=== PATIENT | female | born 1965 | race Caucasian/White ===

== ENCOUNTER 2025-01-13 11:28 | Inpatient (IN) | payer OTHER, SELFPAY ==
[2025-01-13] VITALS (60 sets, daily range): BP systolic 97–124; BP diastolic 67–87; PULSE 75–127; TEMP 36.3–37; O2SAT 90–99; BMI 46.4; BMI 53.9
--- NOTE | 2025-01-13 11:43 | ECG_ITS ---
[facility] Test Date: 2025-01-13 Pat Name: IRASEMA STRICKLAND Department: Room: - Gender: Female Local Delivery Driver: : 1965 Requested By: [id number] Order Number: [id number] Reading MD: JOHNATHON GREENBERG Measurements Intervals [place] Rate: 108 P: -49264 GA: -53331 QRS: 98 QRSD: 100 T: -68 QT: 336 QTc: 400 Interpretive Statements 1420 Undetermined rhythm, possibly atrial fibrillation [address] depression 4664 Twave abnormality, possible inferior ischemia 7102 Moderate right axis deviation 8102 Low QRS voltage in chest leads 9150 abnormal ECG Electronically Signed On 01-13-2025 20:27:28 EST by JOHNATHON GREENBERG
--- NOTE | 2025-01-13 11:58 | US_ITS ---
The [address] [address] Patient Name: IRASEMA STRICKLAND MRN: [id number] date: 1965 Sex: F Assigned Patient Location: ER Current Patient Location: ER Accession/Order Number: [id number] Exam Date: 01/13/2025 16:24 Report Date: 01/13/2025 16:28 At the request of: PHANI LEVIN MD Procedure: US venous doppler LE LT VENOUS DUPLEX ULTRASOUND - right lower extremity HISTORY / INDICATION: Right calf erythema and pain COMPARISON: NONE TECHNIQUE: Duplex and color Doppler ultrasound evaluation of the right lower extremity was performed. FINDINGS: Evaluation is slightly limited by body habitus. The common femoral, superficial femoral and popliteal veins show normal flow and as visualized, normal compressibility. No intraluminal filling defects are identified. The visualized calf veins and greater saphenous vein are also compressible. The subcutaneous soft tissues are edematous. US/US venous doppler LE LT IMPRESSION: NO DEFINITE ACUTE DEEP VEIN THROMBOSIS OF THE RIGHT LOWER EXTREMITY. SUBCUTANEOUS EDEMA. Impression dictated by: Kathy Saul M.D.01/13/2025 4:28 PM Dictation Location: [employer] Electronically authenticated by: [id number] Y Date: 01/13/2025 16:28
[2025-01-13 12:16] LABS: Basophils Absolute Auto 0.1 10^3/uL (0.0-0.1); Basophils Percent Auto 1.1 % (0.2-2.0); Eosinophils Absolute Auto 0.1 10^3/uL (0.0-0.7); Eosinophils Percent Auto 1.1 % (0.9-7.0); Immature Granulocytes Abs Auto 0.02 10^3/uL (0.00-0.03); Immature Granulocytes Pct Auto 0.3 % (0.0-0.5); Lymphocytes Absolute Auto 1.1 10^3/uL (1.2-3.8); Lymphocytes Percent Auto 16.9 % (20.5-60.0); Mean Corpuscular HGB Conc 31.4 g/dL (29.9-35.2); Mean Corpuscular Volume 92.3 fL (81.0-99.0); Mean Platelet Volume 10.2 fL (9.5-13.5); Monocytes Absolute Auto 0.6 10^3/uL (0.3-0.8); Monocytes Percent Auto 8.8 % (1.7-12.0); Neutrophils Absolute Auto 4.7 10^3/uL (1.4-6.5); Neutrophils Percent Auto 71.8 % (43.0-75.0); Platelet Count 178 10^3/uL (150-450); Red Blood Count 3.79 10^6/uL (4.20-5.40); Red Cell Distribution Width 16.6 % (11.0-15.0); White Blood Count 6.6 10^3/uL (4.0-11.0)
[2025-01-13 12:33] LABS: Magnesium 1.6 mg/dL (1.8-2.4); Troponin I High Sensitivity 9.9 pg/mL (4.0-51.3)
[2025-01-13 12:34] LABS: Alanine Aminotransferase 11 U/L (14-59); Albumin Globulin Ratio 0.7; Albumin Level 3.1 g/dL (3.4-5.0); Alkaline Phosphatase 108 U/L (46-116); Anion Gap 15.7; Aspartate Amino Transferase 16 U/L (15-37); BUN Creatinine Ratio 12.5; Bilirubin Total 2.6 mg/dL (0.2-1.0); Calcium 8.9 mg/dL (8.5-10.1); Carbon Dioxide 23.1 mmol/L (21.0-32.0); Chloride 104 mmol/L (98-107); Estimated GFR (African America >60 (>=60 mL/min/1.73m^2); Estimated GFR (Non-African Ame 50 (>=60 mL/min/1.73m^2); Globulin 4.3 g/dL; Glucose 87 mg/dL (74-106); Potassium 3.8 mmol/L (3.5-5.1); Sodium 139 mmol/L (136-145); Total Protein 7.4 g/dL (6.4-8.2)
[2025-01-13 12:35] LABS: INR 1.68; Prothrombin Time 16.9 sec (9.0-11.6)
[2025-01-13 12:36] LABS: Lactate/Lactic Acid 2.2 mmol/L (0.4-2.0)
[2025-01-13 12:38] LABS: D Dimer 3.14 mg/L FEU (<=0.59)
--- NOTE | 2025-01-13 14:00 | CT_ITS ---
The [address] [address] Patient Name: IRASEMA STRICKLAND MRN: [id number] date: 1965 Sex: F Assigned Patient Location: ER Current Patient Location: Accession/Order Number: [id number] Exam Date: 01/13/2025 16:09 Report Date: 01/13/2025 16:23 At the request of: PHANI LEVIN MD Procedure: CT angio chest CT PULMONARY ANGIOGRAM WITH CONTRAST CLINICAL HISTORY: Shortness of breath, left leg pain and elevated d-dimer. Prior history of pulmonary embolism. COMPARISON: 11/08/2020 TECHNIQUE: Spiral images were obtained through the chest following intravenous administration of 100 mL of Omnipaque 3505. Images were reviewed using both narrow and wide window settings. Sagittal, coronal and 3 D volume-rendered reconstructions were performed and reviewed. This CT exam was performed using one or more following dose reduction techniques: Automated exposure control, adjustment of the mA and/or kV according to patient size, or use of iterative reconstruction technique. FINDINGS: The heart remains prominent, particularly the right ventricle. Mild reflux into the IVC and hepatic veins is again seen. There is no pericardial effusion. No aortic aneurysm or dissection is identified. The main pulmonary artery remains mildly prominent. There is adequate opacification of the pulmonary arteries. No obvious emboli are identified however assessment of some of the peripheral arterial branches is slightly limited by the presence of respiratory motion. No pathologic lymphadenopathy is seen. The bony structures are intact. Scarring is present at the left lung apex. Additional areas of scarring and possible atelectasis are present bilaterally. Somewhat nodular areas of more focal consolidation are seen at the right lower lobe posteriorly. There is also minor patchy groundglass density on the right which may be new. There is no pneumothorax or pleural effusion. Limited cuts through the upper abdomen show some ascites. CT/CT angio chest IMPRESSION: CARDIOMEGALY WITH RIGHT HEART FAILURE. CONTINUED POTENTIAL PULMONARY ARTERY HYPERTENSION. NO OBVIOUS ACUTE PULMONARY EMBOLISM. ATELECTASIS AND/OR SCARRING. NODULAR CONSOLIDATION AND PATCHY GROUNDGLASS DENSITY INVOLVING THE RIGHT LUNG. Impression dictated by: Kathy Saul M.D.01/13/2025 4:23 PM Dictation Location: [place] [address] Electronically authenticated by: [id number] Y Date: 01/13/2025 16:23
[2025-01-13] MEDS: 0.9 % SODIUM CHLORIDE 1,000 ML 500 ML IV (14:37)
--- NOTE | 2025-01-13 17:37 | ED_ITS ---
HPI HPI - General Adult General Chief complaint: Shortness of Breath/Dyspnea Stated complaint: SOB Time Seen by Provider: 01/13/25 11:43 Source: patient Mode of arrival: ambulance Limitations: no limitations History of Present Illness HPI narrative: The patient is a 59-year-old female is coming to the ER after she was evaluated outpatient by her primary care, patient was found to be short of breath on exertion and she have bilateral leg edema mostly in the left than the right, the patient have a history of DVT as well as history of multiple PEs before and she is taking anticoagulation Patient mentioned that she has been feeling since since October when she was diagnosed with COVID-19 and apparently has been short of breath since then, her main concern that she has been having bilateral leg edema up to her knee level at least that is preventing her from ambulating properly, her legs are very swollen Related Data Home Medications ?Medication ?Instructions ?Recorded ?Confirmed albuterol sulfate 90 mcg/actuation 3 inh inhalation Q4H PRN breathing 01/13/25 01/13/25 breath activated powder inhaler apixaban 5 mg tablet (Eliquis) 5 mg PO BID 01/13/25 01/13/25 ergocalciferol (vitamin D2) 1,250 01/13/25 mcg (50,000 unit) capsule furosemide 40 mg tablet (Lasix) 40 mg PO DAILY 01/13/25 01/13/25 losartan 50 mg tablet (Cozaar) 50 mg PO DAILY 01/13/25 01/13/25 montelukast 10 mg tablet 10 mg PO DAILY 01/13/25 01/13/25 (Singulair) potassium chloride 20 mEq oral 20 meq PO DAILY 01/13/25 01/13/25 packet (Klor-Con) Allergies Allergy/AdvReac Type Severity Reaction Status Date / Time morphine Allergy Mild Rash Verified 01/13/25 11:39 Opioid HPI Opioid Management Most Recent Opioid Data: No Data to Display Review of Systems ROS Status of ROS 10 or more systems reviewed and unremark able except as noted in history and below PFSH PFSH Social History Little interest or pleasure in doing things: not at all Feeling down, depressed, or hopeless: not at all Exam Narrative Exam Narrative: Nurses notes and vital signs reviewed and patient is not hypoxic. Lower extremity exam: The patient have a pitting bilateral edema with chronic skin changes and hardening of the skin, there is erythema noted behind the left calf area there is no tenderness on palpation but the patient feet are very edematous with 1+ to 2+ edema in the foot, no vascular injury detected General: Well-appearing and in no apparent distress. Skin: Warm, dry, no pallor noted. No rash. Head: Normocephalic, atraumatic. Neck: Supple, non-tender. Eye: Pupils are equal, round and EOMI. No scleral icterus. Ears, Nose, Mouth, and Throat: TM are clear, no nasal mucosal hypertrophy. Oral mucosa is moist, no posterior oropharynx erythema, uvula is mid-line Cardiovascular: Regular Rate and Rhythm without murmur, gallop or rub. Respiratory: Distant breathing sound bilaterally no wheezing Back: No midline thoracic or lumbar vertebral tenderness. No CVA tenderness GI: Abdomen is soft, non-distended. Normal bowel sounds. No masses appreciated. No tenderness to palpation. No rebound, guarding, or rigidity noted. Neurological: A&O x4. No cranial nerve dysfunction observed. No truncal ataxia. Moves all extremities. Sensation intact. Psychiatric: Cooperative and interactive. Normal mood and affect. Constitutional Vital Signs, click to edit/add: Last Vital Signs Temp 98.1 F 01/13/25 11:35 Pulse 105 H 01/13/25 18:00 Resp 17 01/13/25 18:00 BP 110/73 01/13/25 17:59 Pulse Ox 99 01/13/25 18:00 O2 Del Method Room Air 01/13/25 11:35 Course Vital Signs Vital signs: Vital Signs Temperature 98.1 F 01/13/25 11:35 Pulse Rate 109 H 01/13/25 11:35 Respiratory Rate 24 H 01/13/25 11:35 Blood Pressure 123/87 01/13/25 11:35 Pulse Oximetry 96 01/13/25 11:35 Oxygen Delivery Method Room Air 01/13/25 11:35 Temperature 98.1 F 01/13/25 11:35 Pulse Rate 105 H 01/13/25 18:00 Respiratory Rate 17 01/13/25 18:00 Blood Pressure 110/73 01/13/25 17:59 Pulse Oximetry 99 01/13/25 18:00 Oxygen Delivery Method Room Air 01/13/25 11:35 Medical Decision Making MDM Narrative Medical decision making narrative: The patient duplex of the left lower extremity showed no DVT CBC and chemistry showed no acute significant pathology with the BNP of 700 D-dimer was elevated and the patient had a CT angio of the chest showing no PE but the patient have chronic pulmonary hypertension and right-sided heart failure Patient EKG upon arrival showing [address] heart rate with no ST elevation or depression The patient CT of the chest showed no PE but she definitely have bilateral edema that is causing her to have a difficult ambulation The patient case was discussed with Dr. Zhang and she will be admitted under for CHF management and diuresis Lab Data Labs: Lab Results 01/13/25 01/13/25 01/13/25 Range/Units 12:01 12:41 14:58 WBC 6.6 (4.0-11.0) 10^3/uL RBC 3.79 L (4.20-5.40) 10^6/uL Hgb 11.0 L (12.0-16.0) g/dL Hct 35.0 L (36.0-48.0) % MCV 92.3 (81.0-99.0) fL MCH 29.0 (26.7-34.0) pg MCHC 31.4 (29.9-35.2) g/dL RDW 16.6 H (11.0-15.0) % Plt Count 178 (150-450) 10^3/uL MPV 10.2 (9.5-13.5) fL Neut % (Auto) 71.8 (43.0-75.0) % Lymph % (Auto) 16.9 L (20.5-60.0) % [place] % (Auto) 8.8 (1.7-12.0) % Eos % (Auto) 1.1 (0.9-7.0) % Baso % (Auto) 1.1 (0.2-2.0) % Neut # (Auto) 4.7 (1.4-6.5) 10^3/uL Lymph # (Auto) 1.1 L (1.2-3.8) 10^3/uL [place] # (Auto) 0.6 (0.3-0.8) 10^3/uL Eos # (Auto) 0.1 (0.0-0.7) 10^3/uL Baso # (Auto) 0.1 (0.0-0.1) 10^3/uL Abs Immat Gran (auto) 0.02 (0.00-0.03) 10^3/uL Imm/Tot Granulo (auto) 0.3 (0.0-0.5) % PT 16.9 H (9.0-11.6) sec INR 1.68 D-Dimer 3.14 H* (<=0.59) mg/L FEU Sodium 139 (136-145) mmol/L Potassium 3.8 (3.5-5.1) mmol/L Chloride 104 (98-107) mmol/L Carbon Dioxide 23.1 (21.0-32.0) mmol/L Anion Gap 15.7 BUN 14.0 (7.0-18.0) mg/dL Creatinine 1.12 H (0.55-1.02) mg/dL Est GFR ( Amer) >60 (>=60 mL/min/1.73m^2) Est GFR (Non-Af Amer) 50 L (>=60 mL/min/1.73m^2) BUN/Creatinine Ratio 12.5 Glucose 87 (74-106) mg/dL Lactate 2.2 H* 2.0 (0.4-2.0) mmol/L Calcium 8.9 (8.5-10.1) mg/dL Magnesium 1.6 L (1.8-2.4) mg/dL Total Bilirubin 2.6 H (0.2-1.0) mg/dL AST 16 (15-37) U/L ALT 11 L (14-59) U/L Alkaline Phosphatase 108 (46-116) U/L Troponin I High Sens 9.9 (4.0-51.3) pg/mL NT-Pro-B Natriuret Pep 719.0 (<=900.0) pg/mL Total Protein 7.4 (6.4-8.2) g/dL Albumin 3.1 L (3.4-5.0) g/dL Globulin 4.3 g/dL Albumin/Globulin Ratio 0.7 Discharge Plan Discharge Chief Complaint: Shortness of Breath/Dyspnea Clinical Impression: Acute exacerbation of CHF (congestive heart failure), Bilateral edema of lower extremity, Impaired ambulation Patient Disposition: Admitted As Inpatient Time of Disposition Decision: 18:28
[2025-01-13] MEDS: BUMETANIDE 1 MG/4 ML VIAL IVP (19:22)
--- NOTE | 2025-01-13 19:23 | PC.NURSE ---
Report called to Jovanna RIVERA
[2025-01-13] MEDS: ACETAMINOPHEN 325 MG TABLET 650 MG PO (19:26)
[2025-01-13] MEDS: APIXABAN 5 MG TABLET PO (22:08)
[2025-01-14] VITALS (22 sets, daily range): BP systolic 93–121; BP diastolic 58–80; PULSE 74–114; TEMP 36.6–36.9; O2SAT 87–94
[2025-01-14] MEDS: BUMETANIDE 1 MG/4 ML VIAL IVP (06:41)
[2025-01-14 06:45] LABS: Basophils Absolute Auto 0.1 10^3/uL (0.0-0.1); Basophils Percent Auto 0.8 % (0.2-2.0); Eosinophils Absolute Auto 0.1 10^3/uL (0.0-0.7); Eosinophils Percent Auto 1.8 % (0.9-7.0); Hematocrit 35.1 % (36.0-48.0); Hemoglobin 11.1 g/dL (12.0-16.0); Immature Granulocytes Abs Auto 0.03 10^3/uL (0.00-0.03); Immature Granulocytes Pct Auto 0.5 % (0.0-0.5); Lymphocytes Absolute Auto 1.1 10^3/uL (1.2-3.8); Lymphocytes Percent Auto 17.4 % (20.5-60.0); Mean Corpuscular HGB Conc 31.6 g/dL (29.9-35.2); Mean Corpuscular Hemoglobin 29.4 pg (26.7-34.0); Mean Corpuscular Volume 93.1 fL (81.0-99.0); Mean Platelet Volume 9.9 fL (9.5-13.5); Monocytes Absolute Auto 0.7 10^3/uL (0.3-0.8); Neutrophils Absolute Auto 4.6 10^3/uL (1.4-6.5); Neutrophils Percent Auto 69.5 % (43.0-75.0); Platelet Count 169 10^3/uL (150-450); Red Blood Count 3.77 10^6/uL (4.20-5.40); Red Cell Distribution Width 16.8 % (11.0-15.0); White Blood Count 6.6 10^3/uL (4.0-11.0)
[2025-01-14 07:03] LABS: Alanine Aminotransferase 10 U/L (14-59); Albumin Globulin Ratio 0.7; Albumin Level 2.9 g/dL (3.4-5.0); Alkaline Phosphatase 104 U/L (46-116); Anion Gap 14.8; Aspartate Amino Transferase 14 U/L (15-37); BUN Creatinine Ratio 12.1; Bilirubin Total 2.8 mg/dL (0.2-1.0); Calcium 8.7 mg/dL (8.5-10.1); Carbon Dioxide 23.2 mmol/L (21.0-32.0); Chloride 104 mmol/L (98-107); Estimated GFR (African America >60 (>=60 mL/min/1.73m^2); Estimated GFR (Non-African Ame 52 (>=60 mL/min/1.73m^2); Globulin 4.2 g/dL; Glucose 79 mg/dL (74-106); Magnesium 1.7 mg/dL (1.8-2.4); Sodium 138 mmol/L (136-145); Total Protein 7.1 g/dL (6.4-8.2)
--- NOTE | 2025-01-14 09:14 | P.HP_ITS ---
HPI H&P: HPI History of Present Illness Chief complaint: SOB CHF EXACERB Narrative: Patient is a 59 y.o female with past medical history of Chronic PE's and DVT's taking Eliquis, Allergic Asthma, HTN, and Chronic Covid and recent lower ext edema with increased shortness of breath. She presented to the ER yesterday for her increased edema, pain and inability to ambulate due to the swelling. ER Findings: patient duplex of the left lower extremity showed no DVT; CBC and chemistry showed no acute significant pathology with the BNP of 700; D-dimer was elevated and the patient had a CT angio of the chest showing no PE but the patient have chronic pulmonary hypertension and right-sided heart failure and RLL infiltrate; Patient EKG upon arrival showing [address] rate with no ST elevation or depression; Patient was admitted for acute on chronic heart failure and diuresis. Patient states when she had covid in 2019 she went to [facility] for aggressive diuresis and heart failure. She does not wear oxygen. She has noticed her clothes fitting tightly. No fever or chills but sore throat and some URI symptoms. No cough. She does admit to shortness of breath with ambulation. Her swelling extends up to her abdomen. 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 She is tearful on exam, and does not feel well. BP was 90/50's while i was in the room but she was given her first dose of Coreg. I discussed with patient I will stop this. Opioid HPI Opioid Management Most Recent Pain and Opioid Data: Last Pain Scale 3 01/14/25 10:19 01/14/25 Last Pain Assessment 01/14/25 14:03 Last MAR Pain Assessment 01/14/25 10:19 Last ORT Total Score 0 01/13/25 20:50 01/13/25 Last ORT Risk Category Low Risk 01/13/25 20:50 01/13/25 Review of Systems ROS Narrative ROS: a complete review of systems were reviewed with patient and are positive as below or listed in History of Chief Complaint. General: no fever, chills, night sweats Head: no headache, trauma, visual changes, nausea or vomiting Skin: no reported rashes, itching or sores Eyes: no blurriness of vision Ears: no reported hearing loss, vertigo, earache, or tinnitus Throat: sore throat, hoarseness, but no swelling of neck, or tongue pain Heart: no chest pain Lungs: shortness of breath no cough GI: diarrhea no vomiting/nausea Urinary: no urinary urgency, frequency or pain Neuro: no numbness or tingling HEM: no bleeding issues or bruising ENDO: no thyroid problems Psych: no anxiety or depression PFSH PFS Medical History (Updated 01/14/25 @ 14:32 by Stacey Robbins DO) DVT (deep venous thrombosis) ?I82.409 - Acute embolism and thrombosis of unspecified deep veins of unspecified lower extremity (ICD-10) PE (pulmonary thromboembolism) ?I26.99 - Other pulmonary embolism without acute cor pulmonale (ICD-10) Surgical History H/O knee surgery ?Z98.890 - Other specified postprocedural states (ICD-10) Family History Mother Family history of CHF (congestive heart failure) Family history of hypertension Grandmother Family history of CHF (congestive heart failure) Family history of cancer Grandfather Family history of cancer Father Family history of cancer Family history of hypertension Brother Family history of hypertension Brother Family history of cancer Aunt Family history of cancer Social History Within the past year, how often did you have a drink containing alcohol: never Score interpretation: A score less than 3 is consistent with normal alcohol consumption. Smoking status: Never smoker Non-prescribed substance use: denies use Highest level of school completed/degree received: Associate degree: occupational, technical, vocational program Are you now , , , , never or living with a partner: In a typical week, how many times do you talk on the telephone with family, friends, or neighbors: twice per week How often do you get together with friends or relatives: twice per week How often do you attend zoroastrian or pentecostal services: 1-3 times per year Do you belong to any clubs or organizations such as zoroastrian groups unions, fraternal or athletic groups, or school groups: yes Total score: 3 Score interpretation: A score of greater than or equal to 2 indicates the lowest level of social isolation. Little interest or pleasure in doing things: not at all Feeling down, depressed, or hopeless: not at all Feel stressed/tense/nervous/anxious/difficulty sleeping: not at all Do you think of yourself as: straight/heterosexual Gender Identity: female Meds Home Medications and Allergies Home Medications ?Medication ?Instructions ?Recorded ?Confirmed ?Type albuterol sulfate 90 mcg/actuation 3 inh inhalation Q4H PRN breathing 01/13/25 01/13/25 History breath activated powder inhaler apixaban 5 mg tablet (Eliquis) 5 mg PO BID 01/13/25 01/13/25 History ergocalciferol (vitamin D2) 1,250 1,250 mcg PO QWEEK 01/13/25 01/14/25 History mcg (50,000 unit) capsule furosemide 40 mg tablet (Lasix) 40 mg PO DAILY 01/13/25 01/13/25 History losartan 50 mg tablet (Cozaar) 50 mg PO DAILY 01/13/25 01/13/25 History montelukast 10 mg tablet 10 mg PO DAILY 01/13/25 01/13/25 History (Singulair) potassium chloride 20 mEq oral 20 meq PO BID 01/13/25 01/13/25 History packet (Klor-Con) Allergies Allergy/AdvReac Type Severity Reaction Status Date / Time morphine Allergy Mild Rash Verified 01/13/25 11:39 Exam Narrative Exam Narrative: General: Patient is alert, and oriented to person, place and time with normal affect, proper hygiene, some conversational dyspnea Skin: bilateral lower extremities with erythema and some stasis dermatitis with open 2cm x 2cm wound on the left leg, draining clear liquid Head: atraumatic, acephalic Eyes: PERRLA, no nystagmus present, conjunctiva clear, no scleral icterus Ears: normal gross auditory acuity Heart: Normal rate and rhythm, no murmurs/rubs/gallops Lungs: no audible wheezes, but crackles bilateral bases Abdomen: Normal audible bowel sounds, no distension, No palpable masses, no organomegaly, no rebound/guarding/ or rigidity Musculoskeletal: +3 pitting edema/ swelling bilateral lower extremities that extends up to abdomen Neuro: CN II-X grossly intact Constitutional Vital Signs, click to edit/add: Last Vital Signs Temp 98.5 F 01/14/25 07:43 Pulse 112 H 01/14/25 08:00 Resp 20 01/14/25 07:43 BP 121/73 01/14/25 07:43 Pulse Ox 92 L 01/14/25 07:43 O2 Del Method Room Air 01/14/25 04:00 O2 Flow Rate 91 01/13/25 20:50 Results Labs Labs: Short CBC 01/13/25 01/14/25 Range/Units 12:01 06:30 WBC 6.6 6.6 (4.0-11.0) 10^3/uL Hgb 11.0 L 11.1 L (12.0-16.0) g/dL Hct 35.0 L 35.1 L (36.0-48.0) % Plt Count 178 169 (150-450) 10^3/uL BMP 01/13/25 01/14/25 12:01 06:30 Sodium 139 138 Potassium 3.8 4.0 Chloride 104 104 Carbon Dioxide 23.1 23.2 BUN 14.0 13.0 Creatinine 1.12 H 1.07 H Glucose 87 79 Calcium 8.9 8.7 Liver Function 01/13/25 01/14/25 Range/Units 12:01 06:30 Total Bilirubin 2.6 H 2.8 H (0.2-1.0) mg/dL AST 16 14 L (15-37) U/L ALT 11 L 10 L (14-59) U/L Alkaline Phosphatase 108 104 (46-116) U/L Albumin 3.1 L 2.9 L (3.4-5.0) g/dL Assessment and Plan Assessment and Plan (1) Acute exacerbation of CHF (congestive heart failure): Assessment and Plan: daily weights, monitor I&O's, fluid restriction to 1.5 L. Continue with Bumex 2mg IV BID, Continue losartan, start Coreg 3.125mg BID but stopped due to hypotension after 1 dose. 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 (3) Bilateral edema of lower extremity: Assessment and Plan: see #1 (4) Acute respiratory failure with hypoxia: Assessment and Plan: patient's saturations dropped to 85% on room air, placed on 2 L NC and recovered well; hopefully will improve with diuresis (5) RLL pneumonia: Assessment and Plan: as seen on CTA, could also be pulmonary edema, check Viral testing, Start Zosyn. Qualifiers: Pneumonia type: due to unspecified organism Qualified Code(s): J18.9 - Pneumonia, unspecified organism (6) PE (pulmonary thromboembolism): Assessment and Plan: Chronic, continue eliquis, CTA negative for acute findings (7) DVT (deep venous thrombosis): Assessment and Plan: chronic, no recent DVT findings, continue Eliquis Qualifiers: Affected thrombotic vein of extremity: unspecified vein of extremity Chronicity: chronic DVT location: lower extremity Laterality: unspecified laterality Qualified Code(s): I82.509 - Chronic embolism and thrombosis of unspecified deep veins of unspecified lower extremity Plan Patient is full code Continue Eliquis Patient is inpatient status and is expected to stay 2-3 days of diuresis and treatment of her acute CHF exacerbation. Urinary Catheter Management Urinary Catheter Management 2-way Urethral: Cath placed during this visit: yes Urethral indwelling: Yes Reason for continuing: measure accurate output Insertion date: 01/13/25 Insertion time: 19:12
--- NOTE | 2025-01-14 09:22 | CA_ITS ---
Patient Name: IRASEMA STRICKLAND MR#: [id number] : 1965 Exam Date: 01/14/2025 Ordering Doctor: MARLENY MEJIA . ECHOCARDIOGRAM REPORT PROCEDURE: CA ECHO DOPPLER COMPLETE INDICATIONS: acute on chronic CHF COMPARISON: None. DESCRIPTION: COMPLETE ECHOCARDIOGRAM Real-time transthoracic echocardiography with 2D, M-mode, spectral and color flow Doppler performed. QUALITY: Technical quality was good. LEFT VENTRICLE: Normal chamber size. Normal left ventricular wall thickness. Global left ventricular systolic function is normal. D-shaped left ventricle due to right ventricular volume versus pressure overload. LV EF: Estimated left ventricular ejection fraction is 60%. DIASTOLIC: ATRIAL SEPTUM: LEFT ATRIUM: Mild chamber dilatation. RIGHT ATRIUM: Severe dilatation. RIGHT VENTRICLE: Severe dilatation. Severely reduced right ventricular systolic function. TRICUSPID VALVE: Normal mobility and thickness. No stenosis with severe regurgitation. Moderate to severe pulmonary hypertension. RVSP 59 mmHg MITRAL VALVE: Normal mobility and thickness. No evidence of mitral valve stenosis. There is no mitral annular calcification. Mild mitral regurgitation. AORTIC VALVE: Normal trileaflet appearance. Thickened aortic valve. Normal leaflet mobility. No evidence of aortic valve stenosis. No aortic regurgitation. AORTIC ROOT: Normal diameter and appearance. PULMONIC VALVE: Normal thickness and mobility. No stenosis. Moderate regurgitation. PERICARDIUM: No evidence of pericardial effusion. IVC: Severe dilatation. No collapse. PLEURA: CONCLUSION: 1. The left ventricle is normal in size and exhibits normal systolic function. Estimated LVEF is 60%. 2. Severely dilated right ventricle with severely reduced systolic function. 3. Severely dilated right atrium. 4. Severe tricuspid regurgitation. 5. Moderate pulmonic regurgitation. 6. Moderate to severe pulmonary hypertension. RVSP is 59 mmHg. 7. No pericardial effusion. 8. Findings are consistent with severe right heart failure in the setting of pulmonary hypertension. Adult Echocardiography Procedure Report Left Ventricle LVEDD (3.7 - 5.6 cm): 4.66 cm LVESD (2.2 - 4.0 cm): 2.66 cm LVIVS thickness (0.6 - 1.2 cm): 0.73 cm LVPW thickness (0.5 - 1.0 cm): 0.85 cm e': 0.13 m/s E - e': 7.28 LVOT Max Gradient: 2.30 mm[Hg], 3.07 mm[Hg] LVOT Area (cm2): 0.76 m/s, 0.88 m/s Peak Velocity (LVOT): 0.76 m/s, 0.88 m/s Mean Velocity (LVOT): 0.53 m/s LVOT Diameter 1.99 cm Left Ventricular Ejection Fraction: 60 % Left Atrium LA Volume Index (2D A2C): 21.17 ml/m2 Left Atrium Systolic Dimension: 4.47 cm Mitral Valve MV E to A Ratio: 1.02 Mitral Valve A-Wave Peak Velocity: 0.90 m/s Mitral Valve E-Wave Peak Velocity: 0.92 m/s Right Ventricle RV Internal Diastolic Dimension: 4.53 cm Aorta AO Root Diam: 2.64 cm Ascending Ao Diam: 2.58 cm Aortic Valve AoV Area (Peak Gavin): 1.70 cm2, 1.67 cm2, 1.96 cm2, 1.93 cm2 AoV Area (VTI): 1.44 cm2, 1.38 cm2 Peak Velocity(Antegrade Flow): 1.41 m/s, 1.35 m/s Peak Gradient(Antegrade Flow): 7.91 mm[Hg], 7.32 mm[Hg] Mean Velocity(Antegrade Flow): 1.05 m/s, 1.00 m/s Mean Gradient(Antegrade Flow): 4.95 mm[Hg], 4.47 mm[Hg] Velocity Time Integral: 28.34 cm, 26.22 cm Tricuspid Valve Peak Velocity (Regurgitant Flow): 3.14 m/s, 2.78 m/s, 3.30 m/s Pulmonic Valve Mean Gradient: 3.07 mm[Hg], 3.23 mm[Hg], 3.00 mm[Hg] Mean Velocity: 0.81 m/s, 0.84 m/s, 0.79 m/s Peak Velocity: 1.30 m/s Peak Gradient: 6.78 mm[Hg], 6.78 mm[Hg], 6.78 mm[Hg] Right Atrium Right Atrium Systolic Pressure: 191.82 ml, 191.82 ml Dictated by: Roosevelt Cardoza M.D. on 01/14/2025 at 15:24 Approved by: Roosevelt Cardoza M.D. on 01/14/2025 at 15:29
[2025-01-14] MEDS: LOSARTAN POTASSIUM 50 MG TABLET PO (09:25)
[2025-01-14] MEDS: ACETAMINOPHEN 325 MG TABLET 650 MG PO ×2 (09:25→21:13)
[2025-01-14] MEDS: APIXABAN 5 MG TABLET PO ×2 (09:30→21:13)
[2025-01-14] MEDS: CARVEDILOL 3.125 MG TABLET PO (09:30)
--- NOTE | 2025-01-14 13:06 | CM.NOTE ---
Rounds made with Dr. Robbins, pt has increased swelling and weight gain. Pt's oxygen level low, RN at bedside and applies oxygen @2L NC. Dr. Robbins will order echo today and diuresis. Pt will change to inpatient status.
[2025-01-14] MEDS: PIPERACILLIN SODIUM/TAZOBACTAM 3.375 GM in 0.9 % SODIUM CHLORIDE 50 ML IV ×2 (13:46→21:12)
[2025-01-14] MEDS: 0.9 % SODIUM CHLORIDE 250 ML 10 ML IV (13:46)
[2025-01-14 14:17] LABS: Influenza Virus A Antigen Negative; Influenza Virus B Antigen Negative; Internal Control Within Normal Limits; SARS-CoV-2 Ag POSITIVE (NEGATIVE)
[2025-01-14] MEDS: BUMETANIDE 1 MG/4 ML VIAL 2 MG IVP (17:33)
[2025-01-14] MEDS: MONTELUKAST SODIUM 10 MG TABLET PO (21:12)
[2025-01-14] MEDS: POTASSIUM CHLORIDE 10 MEQ ER TABLET 20 MEQ PO (21:13)
[2025-01-15] VITALS (10 sets, daily range): BP systolic 110–111; BP diastolic 68–71; PULSE 74–103; TEMP 36.6; O2SAT 90–92
[2025-01-15] MEDS: BUMETANIDE 1 MG/4 ML VIAL 2 MG IVP (05:02)
[2025-01-15] MEDS: PIPERACILLIN SODIUM/TAZOBACTAM 3.375 GM in 0.9 % SODIUM CHLORIDE 50 ML IV ×2 (05:02→13:28)
[2025-01-15 06:22] LABS: Basophils Absolute Auto 0.1 10^3/uL (0.0-0.1); Basophils Percent Auto 1.2 % (0.2-2.0); Eosinophils Absolute Auto 0.2 10^3/uL (0.0-0.7); Eosinophils Percent Auto 2.5 % (0.9-7.0); Hematocrit 34.5 % (36.0-48.0); Hemoglobin 10.8 g/dL (12.0-16.0); Immature Granulocytes Abs Auto 0.03 10^3/uL (0.00-0.03); Immature Granulocytes Pct Auto 0.4 % (0.0-0.5); Lymphocytes Absolute Auto 1.3 10^3/uL (1.2-3.8); Lymphocytes Percent Auto 18.9 % (20.5-60.0); Mean Corpuscular HGB Conc 31.3 g/dL (29.9-35.2); Mean Corpuscular Hemoglobin 29.2 pg (26.7-34.0); Mean Corpuscular Volume 93.2 fL (81.0-99.0); Monocytes Absolute Auto 0.7 10^3/uL (0.3-0.8); Monocytes Percent Auto 11.1 % (1.7-12.0); Neutrophils Absolute Auto 4.4 10^3/uL (1.4-6.5); Neutrophils Percent Auto 65.9 % (43.0-75.0); Platelet Count 169 10^3/uL (150-450); Red Cell Distribution Width 16.9 % (11.0-15.0); White Blood Count 6.7 10^3/uL (4.0-11.0)
[2025-01-15 06:41] LABS: Alanine Aminotransferase <6 U/L (14-59); Albumin Globulin Ratio 0.7; Albumin Level 2.9 g/dL (3.4-5.0); Alkaline Phosphatase 94 U/L (46-116); Anion Gap 13.5; Aspartate Amino Transferase 16 U/L (15-37); BUN Creatinine Ratio 11.4; Bilirubin Total 2.1 mg/dL (0.2-1.0); Calcium 8.6 mg/dL (8.5-10.1); Carbon Dioxide 23.4 mmol/L (21.0-32.0); Chloride 104 mmol/L (98-107); Estimated GFR (African America 54 (>=60 mL/min/1.73m^2); Estimated GFR (Non-African Ame 45 (>=60 mL/min/1.73m^2); Glucose 89 mg/dL (74-106); Magnesium 1.8 mg/dL (1.8-2.4); Potassium 3.9 mmol/L (3.5-5.1); Sodium 137 mmol/L (136-145); Total Protein 6.9 g/dL (6.4-8.2)
--- NOTE | 2025-01-15 08:05 | P.PN_ITS ---
Progress Note: Subjective Subjective Interval history: Patient has had about 2.2L of output since starting Bumex. Her Echocardiogram showed severe increased right sided pressure and pulmonary hypertension with severe right sided heart failure. Cardiology, Dr. Jackson who read the Echocardiogram notified their community health nurse staff last night, who notified me, that patient would benefit from a right sided heart cath for further evaluation. Exam Constitutional Vital Signs, click to edit/add: Last Vital Signs Temp 97.9 F 01/15/25 03:23 Pulse 74 01/15/25 05:32 Resp 18 01/15/25 03:23 BP 110/71 01/15/25 03:23 Pulse Ox 92 L 01/15/25 03:23 O2 Del Method Nasal Cannula 01/15/25 03:23 O2 Flow Rate 2 01/15/25 03:23 Progress Note: Objective Labs Labs: Short CBC 01/15/25 Range/Units 06:11 WBC 6.7 (4.0-11.0) 10^3/uL Hgb 10.8 L (12.0-16.0) g/dL Hct 34.5 L (36.0-48.0) % Plt Count 169 (150-450) 10^3/uL BMP 01/15/25 06:11 Sodium 137 Potassium 3.9 Chloride 104 Carbon Dioxide 23.4 BUN 14.0 Creatinine 1.23 H Glucose 89 Calcium 8.6 Liver Function 01/15/25 Range/Units 06:11 Total Bilirubin 2.1 H (0.2-1.0) mg/dL AST 16 (15-37) U/L ALT <6 L (14-59) U/L Alkaline Phosphatase 94 (46-116) U/L Albumin 2.9 L (3.4-5.0) g/dL Progress Note: A&P Assessment and Plan (1) Acute exacerbation of CHF (congestive heart failure): Qualifiers: Heart failure type: right-sided Qualified Code(s): I50.813 - Acute on chronic right heart failure (2) Anasarca: (3) Bilateral edema of lower extremity: (4) Acute respiratory failure with hypoxia: (5) RLL pneumonia: Qualifiers: Pneumonia type: due to unspecified organism Qualified Code(s): J18.9 - Pneumonia, unspecified organism (6) PE (pulmonary thromboembolism): (7) DVT (deep venous thrombosis): Qualifiers: DVT location: lower extremity Affected thrombotic vein of extremity: unspecified vein of extremity Chronicity: chronic Laterality: unspecified laterality Qualified Code(s): I82.509 - Chronic embolism and thrombosis of unspecified deep veins of unspecified lower extremity Urinary Catheter Management Urinary Catheter Management 2-way Urethral: Cath placed during this visit: yes Urethral indwelling: Yes Insertion date: 01/13/25 Insertion time: 19:12
[2025-01-15] MEDS: POTASSIUM CHLORIDE 10 MEQ ER TABLET 20 MEQ PO (08:30)
[2025-01-15] MEDS: LOSARTAN POTASSIUM 50 MG TABLET PO (08:30)
[2025-01-15] MEDS: APIXABAN 5 MG TABLET PO (08:31)
[2025-01-15] MEDS: ACETAMINOPHEN 325 MG TABLET 650 MG PO (08:31)
[2025-01-15 08:38] LABS: Troponin I High Sensitivity 9.6 pg/mL (4.0-51.3)
--- NOTE | 2025-01-15 10:30 | CM.NOTE ---
Rounds made with Dr. Robbins, discussed with pt lab results, output and echo results. Discussed with pt about transfer to higher level of care for R sided heart cath. Pt verbalizes understanding and in agreement with transfer. Cardiology will consult on pt today and assist with transfer.
--- NOTE | 2025-01-15 13:47 | PM.DS1 ---
DS: Providers Provider Date of admission: 01/14/25 14:34 Primary care physician: Giovanna Fuller NP Admitting clinician: Stacey Robbins Consults: 01/14/25 Occupational Therapy Eval and Treat Routine Reason for consultation: weakness 01/14/25 09:23 Physical Therapy Eval and Treat Routine Reason for consultation: weakness, edema Has provider been notified: No 01/14/25 14:34 Consult to Cardiology Routine Reason for consultation: acute/new CHF with anasarca Has provider been notified: No Discharging clinician: Stacey Robbins DS: Diagnosis Discharge Diagnosis (1) Acute exacerbation of CHF (congestive heart failure): Qualifiers: Heart failure type: right-sided Qualified Code(s): I50.813 - Acute on chronic right heart failure (2) Anasarca: (3) Bilateral edema of lower extremity: (4) Acute respiratory failure with hypoxia: (5) RLL pneumonia: Qualifiers: Pneumonia type: due to unspecified organism Qualified Code(s): J18.9 - Pneumonia, unspecified organism (6) PE (pulmonary thromboembolism): (7) DVT (deep venous thrombosis): Qualifiers: DVT location: lower extremity Affected thrombotic vein of extremity: unspecified vein of extremity Chronicity: chronic Laterality: unspecified laterality Qualified Code(s): I82.509 - Chronic embolism and thrombosis of unspecified deep veins of unspecified lower extremity DS: Summary Hospital Course Hospital Course: Patient is a 59 y.o female with past medical history of Chronic PE's and DVT's taking Eliquis, Allergic Asthma, HTN, and Chronic Covid and recent lower ext edema with increased shortness of breath. She presented to the ER yesterday for her increased edema, pain and inability to ambulate due to the swelling. ER Findings: patient duplex of the left lower extremity showed no DVT; CBC and chemistry showed no acute significant pathology with the BNP of 700; D-dimer was elevated and the patient had a CT angio of the chest showing no PE but the patient have chronic pulmonary hypertension and right-sided heart failure and RLL infiltrate; Patient EKG upon arrival showing [address] rate with no [address] elevation or depression; Patient was admitted for acute on chronic heart failure and diuresis. Patient states when she had covid in 2019 she went to [facility] for aggressive diuresis and heart failure. She does not wear oxygen. She has noticed her clothes fitting tightly. No fever or chills but sore throat and some URI symptoms. No cough. She does admit to shortness of breath with ambulation. Her swelling extends up to her abdomen. She denies having to see a degreasing solution reclaimer after her 2019 hospitalization. She was diuresed with Bumex 2mg IV BID, she has had about 2.2L out. Her leg swelling has improved some. She is requiring 2L NC oxygen for acute respiratory failure from her acute heart failure. Echo showed EF 60% but with severe right atrial and ventricle enlargement, right pressures elevated and tricusbid regurg. Cardiology recommended transfer for Right sided heart cath and she will be transferred to [facility] today. Patient and agree with plan and are amendable to transfer. I had started patient on zosyn for her lower extremities and also her sinusitis symptoms. Viral testing came back positive for Covid but she just had this in October. Patient did have her Eliquis this morning. Dr. Peters is accepting at [facility] Status at Discharge Functional status at discharge: bed bound Overall status at discharge: patient is not back to baseline Time Spent with Patient Time attestation: Total time spent providing and/or coordinating discharge services: Time spent: greater than 30 minutes Exam Narrative Exam Narrative: General: Patient is alert, and oriented to person, place and time with normal affect, proper hygiene, some conversational dyspnea Skin: bilateral lower extremities with erythema and some stasis dermatitis with open 2cm x 2cm wound on the left leg, draining clear liquid Head: atraumatic, acephalic Eyes: PERRLA, no nystagmus present, conjunctiva clear, no scleral icterus Ears: normal gross auditory acuity Heart: Normal rate and rhythm, no murmurs/rubs/gallops Lungs: no audible wheezes, but crackles bilateral bases Abdomen: Normal audible bowel sounds, no distension, No palpable masses, no organomegaly, no rebound/guarding/ or rigidity Musculoskeletal: +3 pitting edema/ swelling bilateral lower extremities that extends up to abdomen Neuro: CN II-X grossly intact Constitutional Vital Signs, click to edit/add: Last Vital Signs Temp 97.9 F 01/15/25 07:53 Pulse 80 01/15/25 12:00 Resp 18 01/15/25 07:53 BP 111/68 01/15/25 07:53 Pulse Ox 90 L 01/15/25 09:59 O2 Del Method Room Air 01/15/25 09:59 O2 Flow Rate 2 01/15/25 07:53 DS: Data Data Completed and Pending Labs on day of discharge: Labs from last 24 hours 01/15/25 01/14/25 06:11 14:00 WBC 6.7 RBC 3.70 L Hgb 10.8 L Hct 34.5 L MCV 93.2 MCH 29.2 MCHC 31.3 RDW 16.9 H Plt Count 169 MPV 10.0 Neut % (Auto) 65.9 Lymph % (Auto) 18.9 L [place] % (Auto) 11.1 Eos % (Auto) 2.5 Baso % (Auto) 1.2 Neut # (Auto) 4.4 Lymph # (Auto) 1.3 [place] # (Auto) 0.7 Eos # (Auto) 0.2 Baso # (Auto) 0.1 Abs Immat Gran (auto) 0.03 Imm/Tot Granulo (auto) 0.4 Sodium 137 Potassium 3.9 Chloride 104 Carbon Dioxide 23.4 Anion Gap 13.5 BUN 14.0 Creatinine 1.23 H Est GFR ( Amer) 54 L Est GFR (Non-Af Amer) 45 L BUN/Creatinine Ratio 11.4 Glucose 89 Calcium 8.6 Magnesium 1.8 Total Bilirubin 2.1 H AST 16 ALT <6 L Alkaline Phosphatase 94 Troponin I High Sens 9.6 NT-Pro-B Natriuret Pep 796.0 Total Protein 6.9 Albumin 2.9 L Globulin 4.0 Albumin/Globulin Ratio 0.7 Influenza Type A Ag Negative Influenza Type B Ag Negative SARS-CoV-2 Ag (CV2AG) Positive A Discharge Plan Discharge Disposition: Xfer Acute [facility] Discharge location: [facility] accepting Dr. Petesr
== END 2025-01-15 16:03 | disposition short-term general hospital (02) | DRG 291 ==
LOC: ER 18:28 → MS 01-14 07:19
PROVIDERS: Registered Nurse; Admitting Provider Family Medicine; Emergency Provider Emergency Medicine; PCP Nurse Practitioner Family; Visit Provider Family Medicine
DX: I11.0 Hypertensive heart disease with heart failure (principal); J18.9 Pneumonia, unspecified organism; J96.01 Acute respiratory failure with hypoxia; I27.82 Chronic pulmonary embolism; I50.813 Acute on chronic right heart failure; Z86.718 Personal history of other venous thrombosis and embolism; Z79.01 Long term (current) use of anticoagulants; Z86.16 Personal history of COVID-19; I27.20 Pulmonary hypertension, unspecified; R79.89 Other specified abnormal findings of blood chemistry; I07.1 Rheumatic tricuspid insufficiency; I87.2 Venous insufficiency (chronic) (peripheral)
CPT/HCPCS: 36415; 51702; 71045; 71275; 80053; 83605; 83735; 83880; 84484; 85025; 85378; 85610; 87804; 87811; 93005; 93306; 93971; 94761; 96365; 96375; 96376; 97161; 97165; 97535; 99285; G0378; J2543; Q9967